=== PATIENT | female | born 1975 | race Two or more races ===

== ENCOUNTER 2024-03-22 15:00 | Outpatient (RCR) | payer MEDICAID, SELFPAY ==
--- NOTE | 2024-03-14 16:02 | PT.ODAYNRPT ---
PT Outpatient Daily Note OP Daily Note Outpatient Physical Therapy Treatment Date: 03/14/24 Visit Reasons: Right shoulder Tinintis Subjective: No soreness to report after last session but continues to have numbing and tingling. Objective: Please see flow sheet for ther ex list. Assessment: Pt demonstrates upper trap recruitment with rows exercise, corrects post verbal cues and demonstrations. Plan: Continue with POC. Length of Time (minutes) of Treatment: 30 Minutes Procedure Charges Therapeutic Exercise 30 minutes: Yes
--- NOTE | 2024-03-22 15:42 | PT.ODAYNRPT ---
PT Outpatient Daily Note OP Daily Note Outpatient Physical Therapy Treatment Date: 03/22/24 Visit Reasons: Right shoulder Tinintis Subjective: Low pain of R shoulder during the day but it hurts at night. She hasn't been working but goes back to work soon. Objective: See F/S for therex Assessment: Low tissue irritability with most therex but some numbness with resisted ER with theraband Plan: Pt will call to schedule after she starts back at work Length of Time (minutes) of Treatment: 30 Minutes Procedure Charges Therapeutic Exercise 30 minutes: Yes
== END 2024-04-07 23:59 | disposition home or self-care (01) ==
LOC: CPTX 15:00
PROVIDERS: PCP Nurse Practitioner; Referring Provider Nurse Practitioner; Visit Provider Nurse Practitioner
DX: M25.511 Pain in right shoulder (principal); M75.21 Bicipital tendinitis, right shoulder
CPT/HCPCS: 97110